=== PATIENT | male | born 1965 | race African-American/Black ===

== ENCOUNTER 2019-07-18 21:40 | Emergency (ER) | payer OTHER ==
[~2019-07-18] VITALS: Ht 175.3 cm; Wt 78.0 kg
--- NOTE | 2019-07-18 21:56 | NUR ---
URINE COLLECTED AND SENT TO LAB
--- NOTE | 2019-07-18 21:56 | NUR ---
PT CAME TO THE ED C/O SI W/ A PLAN TO OVERDOSE HIMSELF W/ HIS MEDICATIONS. DENIES HI. PT AAOX4, RESPIRATIONS EVEN AND UNLABORED ON RA W/ NAD NOTED. PT CHANGED INTO GOWN, CONNECTED TO THE MONITOR, BELONGINGS TO LOCKER, SUICIDE PRECAUTIONS IMPLEMENTED. SITTER AT BEDSIDE FOR SAFETY
--- NOTE | 2019-07-18 21:56 | NUR ---
SECURITY AT BEDSIDE FOR WANDING
[2019-07-18 22:21] LABS: BASOPHILS # (AUTO) 0.1 /CMM (0.0-0.2); BASOPHILS % (AUTO) 1.2 % (0.0-2.0); EOSINOPHILS % (AUTO) 3.4 % (0.0-6.0); HEMATOCRIT 40 % (39-51); HEMOGLOBIN 13.3 g/dL (13.5-17.5); LYMPHOCYTES # (AUTO) 1.9 /CMM (0.8-4.8); MEAN CORPUSCULAR HGB CONC 34 g/dl (31.0-36.0); MEAN CORPUSCULAR VOLUME 100 fL (80-96); MONOCYTES # (AUTO) 0.5 /CMM (0.1-1.30); MONOCYTES % (AUTO) 9.3 % (2.0-12.0); NEUTROPHILS # (AUTO) 2.8 /CMM (1.8-8.9); NEUTROPHILS % (AUTO) 51.1 % (43.0-81.0); PLATELET COUNT (AUTO) 207 /CMM (150-450); RED BLOOD CELL COUNT(AUTO) 3.98 MIL/uL (4.5-6.0); WHITE BLOOD COUNT (AUTO) 5.5 K/uL (4.3-11.0)
[2019-07-18 22:24] LABS: CALCIUM, SERUM 8.8 mg/dL (8.5-10.1); CARBON DIOXIDE 29 mmol/L (21-32); CHLORIDE 105 mmol/L (98-107); CREATININE 1.2 mg/dL (0.6-1.3); GLUCOSE 97 mg/dL (74-106); SODIUM SERUM 141 mmol/L (136-145); UREA NITROGEN, BLOOD 15 mg/dL (7-18)
[2019-07-18 22:29] LABS: ALANINE AMINOTRANSFERASE 45 U/L (12-78); ALBUMIN 3.8 g/dL (3.4-5.0); ALCOHOL, BLOOD < 3 mg/dL (0-0); ALKALINE PHOSPHATASE 94 U/L (46-116); ASPARTATE AMINOTRANSFERASE 87 U/L (15-37); BILIRUBIN,DIRECT 0.1 mg/dL (0.0-0.2); BILIRUBIN,TOTAL 0.3 mg/dL (0.2-1.0); SALICYLATE 3.1 mg/dL (2.8-20.0); TOTAL PROTEIN, SERUM 6.7 g/dL (6.4-8.2)
[2019-07-18 22:30] LABS: ACETAMINOPHEN 0 ug/ml (10-30)
[2019-07-18 22:35] LABS: APPEARANCE,URINE Clear (CLEAR); BILIRUBIN,URINE Negative (NEGATIVE); BLOOD, URINE Negative Ery/uL (NEGATIVE); COLOR,URINE Yellow (YELLOW); KETONES,URINE Negative (NEGATIVE); LEUKOCYTE ESTERASE ,URINE Negative (NEGATIVE); NITRITE, URINE Negative (NEGATIVE); PROTEIN,URINE Negative (NEGATIVE); UGLUCOSE Negative (NEGATIVE); UROBILINOGEN,URINE >=8.0 EU/dL (0.2)
--- NOTE | 2019-07-18 22:52 | NUR ---
CLINICAL FAXED TO [facility] FOR VOLUNTARY PSYCH ADMISSION.
--- NOTE | 2019-07-19 01:09 | NUR ---
PT ACCEPTED AT [facility] PHONE NUMBER FOR REPORT EXT [phone] ACCEPTING PING/TREVOR CALL REPORT TO JOSE A DE LA CRUZ
--- NOTE | 2019-07-19 02:21 | NUR ---
CALLED CALL THE [facility] TRANSPORT TO [facility]. ETA [phone]
--- NOTE | 2019-07-19 03:25 | NUR ---
REPORT GIVEN TO JOSE A DE LA CRUZ [facility] PHILIPPE NARANJO
--- NOTE | 2019-07-19 03:36 | NUR ---
PT RESTING COMFORTABLY IN BED. VSS. NO ACUTE DISTRESS NOTED. SITTER AT BEDSIDE FOR SAFETY
--- NOTE | 2019-07-19 06:38 | NUR ---
CALLED [facility] FOR FOLLOW UP ON ETA ON BLS TRANSPORT. STATED THE BLS TRANSPORT THAT IS SUPPOSED TO [employer] PROGRAM DIRECTOR OUR PATIENT IS STILL AT [facility] TRANSPORTING ANOTHER PT THAT WE SENT, THEYRE WAITING TO TEST THEIR PT FOR COVID. ALSO STATED THAT ONCE THEY TRANSFER THEIR PT THEY WILL COME [employer] MED[employer] PROGRAM DIRECTOR OUR PT.
[2019-07-19 07:45] VITALS: BP 137/91
--- NOTE | 2019-07-19 07:59 | NUR ---
CALLED [id number] TO FOLLOW UP ABOUT ETA [phone] OPT[facility] 2 SPOKE WITH [facility] 45MIN.
--- NOTE | 2019-07-19 08:38 | NUR ---
REPORT GIVEN TO EMT FOR PT TRANSFER TO [facility].
== END 2019-07-19 08:39 ==
LOC: ER 21:43
DX: R45.851 Suicidal ideations (principal); F19.10 Other psychoactive substance abuse, uncomplicated; G40.909 Epilepsy, unspecified, not intractable, without status epilepticus; F20.9 Schizophrenia, unspecified; F32.9 Major depressive disorder, single episode, unspecified
CPT/HCPCS: 36415; 80048; 80076; 80305; 80307; 80329; 81001; 85025; 99285; G0480; 81000-TC

== ENCOUNTER 2019-08-30 12:17 | Emergency (ER) | payer OTHER ==
[~2019-08-30] VITALS: Ht 177.8 cm; Wt 72.6 kg
--- NOTE | 2019-08-30 12:17 | NUR ---
PT BIB SELF C/O SI " I WANT TO RUN THRU TRAFFIC" PT IS AAOX4, NOT IN RESPIRATORY DISTRESS, V/S STABLE, KEPT RESTED AND COMFORTABLE. WILL CONTINUE TO MONITOR. SITTER AT BEDSIDE.
--- NOTE | 2019-08-30 12:27 | NUR ---
URINE SPECIMEN COLLECTED AND SENT TO LAB.
--- NOTE | 2019-08-30 12:36 | NUR ---
ER PHLEB AT BEDSIDE FOR BLOOD DRAW.
[2019-08-30 12:55] LABS: BASOPHILS # (AUTO) 0.1 /CMM (0.0-0.2); BASOPHILS % (AUTO) 1.2 % (0.0-2.0); HEMATOCRIT 41 % (39-51); LYMPHOCYTES # (AUTO) 1.3 /CMM (0.8-4.8); LYMPHOCYTES % (AUTO) 30.8 % (20.0-44.0); MEAN CORPUSCULAR HGB CONC 34 g/dl (31.0-36.0); MEAN CORPUSCULAR VOLUME 101 fL (80-96); MONOCYTES # (AUTO) 0.5 /CMM (0.1-1.30); MONOCYTES % (AUTO) 12.7 % (2.0-12.0); NEUTROPHILS # (AUTO) 2.2 /CMM (1.8-8.9); NEUTROPHILS % (AUTO) 51.3 % (43.0-81.0); PLATELET COUNT (AUTO) 205 /CMM (150-450); RED BLOOD CELL COUNT(AUTO) 4.11 MIL/uL (4.5-6.0); WHITE BLOOD COUNT (AUTO) 4.3 K/uL (4.3-11.0)
[2019-08-30 13:03] LABS: CARBON DIOXIDE 30 mmol/L (21-32); CHLORIDE 104 mmol/L (98-107); CREATININE 1.1 mg/dL (0.6-1.3); GLUCOSE 88 mg/dL (74-106); POTASSIUM 3.3 mmol/L (3.5-5.1); SODIUM SERUM 141 mmol/L (136-145); UREA NITROGEN, BLOOD 16 mg/dL (7-18)
[2019-08-30 13:08] LABS: ALANINE AMINOTRANSFERASE 38 U/L (12-78); ALBUMIN 3.8 g/dL (3.4-5.0); ALCOHOL, BLOOD < 3 mg/dL (0-0); ALKALINE PHOSPHATASE 97 U/L (46-116); ASPARTATE AMINOTRANSFERASE 15 U/L (15-37); BILIRUBIN,DIRECT 0.1 mg/dL (0.0-0.2); BILIRUBIN,TOTAL 0.4 mg/dL (0.2-1.0)
[2019-08-30 13:11] LABS: ACETAMINOPHEN 0 ug/ml (10-30); SALICYLATE 2.6 mg/dL (2.8-20.0)
--- NOTE | 2019-08-30 14:54 | NUR ---
Pt is a 54-year-old male who came to [facility] requesting voluntary psychiatric hospitalization. Pt reports he is suicidal with a plan. DRESSAGE INSTRUCTOR contacted Ronnell at [facility] and initiated voluntary hospitalization. DRESSAGE INSTRUCTOR conducted chart review and faxed clinicals to [facility] intake. DANIEL received a callback from Lucia at intake stating she is missing the medical clearance. DRESSAGE INSTRUCTOR requested for her to contact ED since medical clearance note was not done as of yet by . DRESSAGE INSTRUCTOR updated CRN Gener in ED with aforementioned information.
--- NOTE | 2019-08-30 15:04 | NUR ---
RESEARCH PROGRAM MANAGER faxed medical clearance note to [facility] intake dept and updated CRN Gener in ED.
--- NOTE | 2019-08-30 16:05 | NUR ---
PT ACCEPTED IN [facility] DR[facility] MEHTA GIVE REPORT TO [phone] UNIT 2.
--- NOTE | 2019-08-30 16:20 | NUR ---
[facility] CONFIRMATION # [id number] ONCE THEY HAV3 TRANSPORT THEY WILL CALL
--- NOTE | 2019-08-30 16:46 | NUR ---
REPORT GIVEN TO JOSE A TORRES OF COUNT INCLUDES THE [facility]
--- NOTE | 2019-08-30 16:51 | NUR ---
[facility] ETA [phone]
[2019-08-30 18:15] VITALS: BP 122/68
--- NOTE | 2019-08-30 18:15 | NUR ---
REPORT GIVEN EMT FOR PT TRANSFER TO [facility].
== END 2019-08-30 18:16 ==
LOC: ER 12:17
DX: T73.0XXA Starvation, initial encounter (principal); R45.851 Suicidal ideations; F15.10 Other stimulant abuse, uncomplicated; F14.10 Cocaine abuse, uncomplicated; F12.10 Cannabis abuse, uncomplicated; F20.0 Paranoid schizophrenia; R56.9 Unspecified convulsions; Z59.0 Homelessness; X58.XXXA Exposure to other specified factors, initial encounter
CPT/HCPCS: 36415; 80048; 80076; 80305; 80307; 80329; 85025; 99285; G0480

== ENCOUNTER 2019-10-11 03:16 | Emergency (ER) | payer OTHER ==
[~2019-10-11] VITALS: Ht 175.3 cm; Wt 72.6 kg
--- NOTE | 2019-10-11 03:40 | NUR ---
BIBDAVION C/O SI TO JUMP INFRONT OF TRAFFIC. -HI. PT AAOX4. AMBULATORY WITH STEADY GAIT. PLACED IN BED 15, ON MONITOR, AND PULSE OX. PT BELONINGS PLACED IN LOCKER.
--- NOTE | 2019-10-11 03:41 | NUR ---
PT PROVIDED URINE SAMPLE. SENT TO LAB
--- NOTE | 2019-10-11 03:42 | NUR ---
SECURITY CALLED FOR WANDING
--- NOTE | 2019-10-11 03:48 | NUR ---
MARKETING INTELLIGENCE ANALYST AT BEDSIDE.
[2019-10-11 04:17] LABS: BASOPHILS # (AUTO) 0.1 /CMM (0.0-0.2); BASOPHILS % (AUTO) 1.1 % (0.0-2.0); EOSINOPHILS % (AUTO) 3.3 % (0.0-6.0); HEMATOCRIT 42 % (39-51); HEMOGLOBIN 13.8 g/dL (13.5-17.5); LYMPHOCYTES # (AUTO) 1.9 /CMM (0.8-4.8); LYMPHOCYTES % (AUTO) 34.2 % (20.0-44.0); MEAN CORPUSCULAR HGB CONC 33 g/dl (31.0-36.0); MEAN CORPUSCULAR VOLUME 100 fL (80-96); MONOCYTES # (AUTO) 0.6 /CMM (0.1-1.30); MONOCYTES % (AUTO) 11.1 % (2.0-12.0); NEUTROPHILS # (AUTO) 2.8 /CMM (1.8-8.9); NEUTROPHILS % (AUTO) 50.3 % (43.0-81.0); PLATELET COUNT (AUTO) 230 /CMM (150-450); RED BLOOD CELL COUNT(AUTO) 4.18 MIL/uL (4.5-6.0); WHITE BLOOD COUNT (AUTO) 5.7 K/uL (4.3-11.0)
[2019-10-11 04:18] LABS: APPEARANCE,URINE CLEAR (CLEAR); BILIRUBIN,URINE SMALL (NEGATIVE); BLOOD, URINE SMALL Ery/uL (NEGATIVE); COLOR,URINE YELLOW (YELLOW); KETONES,URINE NEGATIVE (NEGATIVE); LEUKOCYTE ESTERASE ,URINE NEGATIVE (NEGATIVE); NITRITE, URINE NEGATIVE (NEGATIVE); PH,URINE 5.5 (5.0-8.0); PROTEIN,URINE NEGATIVE (NEGATIVE); UGLUCOSE NEGATIVE (NEGATIVE)
[2019-10-11 04:27] LABS: BACTERIA,URINE Few /HPF (None Seen); CALCIUM OXALATE CRYSTALS,UR Many /HPF (None Seen); MUCUS,URINE Moderate /LPF (None Seen); SQUAMOUS EPITHELIAL CELL,UR Rare /HPF (None Seen)
--- NOTE | 2019-10-11 04:54 | NUR ---
Patient is resting comfortably in bed with eyes closed. Easily aroused. VSS
[2019-10-11 06:14] LABS: ALANINE AMINOTRANSFERASE 18 U/L (12-78); ALBUMIN 3.8 g/dL (3.4-5.0); ALKALINE PHOSPHATASE 90 U/L (46-116); ASPARTATE AMINOTRANSFERASE 10 U/L (15-37); BILIRUBIN,DIRECT 0.1 mg/dL (0.0-0.2); BILIRUBIN,TOTAL 0.3 mg/dL (0.2-1.0); CALCIUM, SERUM 8.8 mg/dL (8.5-10.1); CARBON DIOXIDE 24 mmol/L (21-32); CHLORIDE 102 mmol/L (98-107); CREATININE 1.3 mg/dL (0.6-1.3); GLUCOSE 125 mg/dL (74-106); POTASSIUM 3.4 mmol/L (3.5-5.1); SALICYLATE 4.1 mg/dL (2.8-20.0); SODIUM SERUM 137 mmol/L (136-145); TOTAL PROTEIN, SERUM 6.9 g/dL (6.4-8.2); UREA NITROGEN, BLOOD 15 mg/dL (7-18)
[2019-10-11 06:17] LABS: ACETAMINOPHEN 0 ug/ml (10-30)
[2019-10-11 06:26] LABS: ALCOHOL, BLOOD < 3 mg/dL (0-0)
--- NOTE | 2019-10-11 07:19 | NUR ---
ASSESSED PT ON BED ASLEEP BUT EASILY AROUSABLE. NOT IN RESPIRATORY DISTRESS, V/S STABLE, KEPT RESTED AND COMFORTABLE. WILL CONTINUE TO MONITOR.
--- NOTE | 2019-10-11 08:55 | NUR ---
called so jacki kelly, spoke with Hugo, said they received fax but will follow up with bed availability
--- NOTE | 2019-10-11 09:40 | NUR ---
8:45am This SW faxed over clinicals to Ronnell at [facility] . This SW received confirmation of the fax. This SW awaiting confirmation of bed availability.
--- NOTE | 2019-10-11 09:40 | NUR ---
8:30am: Rubber Goods Finisher met with the patient at bedside. Patient is a 54-year-old Male. Patient was alert and orientated x4 and receptive to speaking with this social media marketing specialist. Patient made little eye contact with this social media marketing specialist and when redirected to speak up patient did so. Patient was able to confirm demographics on the face sheet. Patient resides with his father Umesh at [address] [place] [address]. Patient reports the use of a wheelchair in the home as he has pain in his leg, patient does not report having a walker or a cane in addition to the wheelchair. Patient currently receives [employer] benefits, approximately $200. Patient reports alcohol use, currently drinking once a day approximately drinking 15 beers. Patient reports the use of marijuana every day. Patient also reports smoking cigarettes, 2 packs a day. Patient reports a schizophrenic diagnosis currently taking Abilify and Seroquel. Patient reports visual hallucinations to kill my mom and pt reports audio hallucinations to kill myself. Patients presents with a suicidal ideation to run into traffic. Patient denies having homicidal ideations outside of visual hallucinations. This SW spoke to the patient about treatment plan and patient agreed to treatment including a voluntary psychiatric admission. This SW to remain available for all patient needs.
--- NOTE | 2019-10-11 10:09 | NUR ---
Jayesh Young room 203-B [phone] ext [phone]
--- NOTE | 2019-10-11 11:09 | NUR ---
Report given to Ирина NARANJO for maame.
--- NOTE | 2019-10-11 11:17 | NUR ---
SPOKE TO JOHN FROM [facility] TRANSPORT ARRANGED, CONFIRMATION NUMBER: [phone] WAITING FOR CALL BACK FOR ETA.
--- NOTE | 2019-10-11 11:43 | NUR ---
AMBULANCE ETA 1200
[2019-10-11 12:21] VITALS: BP 123/69
--- NOTE | 2019-10-11 12:29 | NUR ---
patient picked up by private ambulance going to [facility] in no distress.
== END 2019-10-11 12:29 ==
LOC: ER 03:26
DX: R45.851 Suicidal ideations (principal); F20.9 Schizophrenia, unspecified
CPT/HCPCS: 36415; 80048; 80076; 80305; 80307; 80329; 81001; 85025; 99285; G0480; 81000-TC

== ENCOUNTER 2020-08-19 11:57 | Emergency (ER) | payer OTHER ==
[~2020-08-19] VITALS: Ht 180.3 cm; Wt 76.2 kg
--- NOTE | 2020-08-19 12:10 | NUR ---
PT C/O ABSCESS ON LT CHEEK. AAOX4, VSS. RR EVEN & UNLABORED. NAD NOTED AT THIS TIME.
[2020-08-19] MEDS ORDERED: SULF1TAB48 PO (13:08)
[2020-08-19] MEDS ORDERED: CEPH500C2 PO (13:08)
--- NOTE | 2020-08-19 13:22 | NUR ---
PT UPON DC FOR CELLULITIS. PT STATED THAT HE'S SUICIDAL & THOUGHTS OF OD ON PILLS, NOTIFIED ERMSohail. TORITER AT BS. PT CALM & COOPERATIVE AT THIS TIME. WILL CONT TO MONITOR.
--- NOTE | 2020-08-19 13:30 | NUR ---
ER PHLEB AT BEDSIDE FOR BLOOD DRAW.
[2020-08-19 13:39] LABS: BASOPHILS # (AUTO) 0.1 K/uL (0.0-0.2); BASOPHILS % (AUTO) 1.3 % (0.0-2.0); EOSINOPHILS % (AUTO) 1.9 % (0.0-6.0); HEMATOCRIT 42 % (39-51); HEMOGLOBIN 13.8 g/dL (13.5-17.5); LYMPHOCYTES # (AUTO) 1.5 K/uL (0.8-4.8); LYMPHOCYTES % (AUTO) 24.5 % (20.0-44.0); MEAN CORPUSCULAR HGB CONC 33 g/dl (31.0-36.0); MEAN CORPUSCULAR VOLUME 102 fL (80-96); MONOCYTES # (AUTO) 0.7 K/uL (0.1-1.30); MONOCYTES % (AUTO) 11.9 % (2.0-12.0); NEUTROPHILS # (AUTO) 3.6 K/uL (1.8-8.9); NEUTROPHILS % (AUTO) 60.4 % (43.0-81.0); PLATELET COUNT (AUTO) 213 K/uL (150-450); RED BLOOD CELL COUNT(AUTO) 4.12 MIL/uL (4.5-6.0)
[2020-08-19 13:58] LABS: CALCIUM, SERUM 9.1 mg/dL (8.5-10.1); CARBON DIOXIDE 32 mmol/L (21-32); CHLORIDE 104 mmol/L (98-107); CREATININE 1.1 mg/dL (0.6-1.3); GLUCOSE 91 mg/dL (74-106); POTASSIUM 3.7 mmol/L (3.5-5.1); SODIUM SERUM 142 mmol/L (136-145); UREA NITROGEN, BLOOD 13 mg/dL (7-18)
[2020-08-19 14:04] LABS: ACETAMINOPHEN 0 ug/ml (10-30); ALANINE AMINOTRANSFERASE 28 U/L (12-78); ALCOHOL, BLOOD < 3 mg/dL (0-0); ALKALINE PHOSPHATASE 103 U/L (46-116); ASPARTATE AMINOTRANSFERASE 17 U/L (15-37); BILIRUBIN,DIRECT 0.1 mg/dL (0.0-0.2); BILIRUBIN,TOTAL 0.5 mg/dL (0.2-1.0); TOTAL PROTEIN, SERUM 7.2 g/dL (6.4-8.2)
[2020-08-19 15:08] LABS: BILIRUBIN,URINE NEGATIVE (NEGATIVE); COLOR,URINE YELLOW (YELLOW); LEUKOCYTE ESTERASE ,URINE NEGATIVE (NEGATIVE); NITRITE, URINE NEGATIVE (NEGATIVE); PROTEIN,URINE NEGATIVE (NEGATIVE); UGLUCOSE NEGATIVE (NEGATIVE)
--- NOTE | 2020-08-19 15:13 | NUR ---
Patient is resting comfortably in bed with eyes closed. Easily aroused. VSS
[2020-08-19 15:32] LABS: BACTERIA,URINE None seen /HPF (None Seen); RBC,URINE 0-2 /HPF (0-2); SQUAMOUS EPITHELIAL CELL,UR 0-2 /HPF (None Seen); WBC,URINE 0-2 /HPF (0-3)
--- NOTE | 2020-08-19 18:01 | NUR ---
[facility] STILL REVIEWING CLINICALS.
[2020-08-19 18:15] VITALS: BP 147/93
--- NOTE | 2020-08-19 18:16 | NUR ---
PT WATCHING TV. RR EVEN & UNLABORED. CALM & COOPERATIVE, NAD NOTED AT THIS TIME. SITTER AT BS. WILL CONT TO MONITOR.
--- NOTE | 2020-08-19 20:43 | NUR ---
PT ACC[facility] OROPEZA. UNIT 2. # FOR REPORT
--- NOTE | 2020-08-19 20:44 | NUR ---
[facility] CALLED FOR TRANSPORTATION. ON HOLD FOR > 30 MINUTES.
--- NOTE | 2020-08-19 20:46 | NUR ---
[facility] CALLED FOR TRANSPORT. ETA 30 MINUTES
--- NOTE | 2020-08-19 20:58 | NUR ---
REPORT GIVEN TO JOSE A VARGAS FOR ABDIRIZAK.
--- NOTE | 2020-08-19 21:12 | NUR ---
[facility] AT BEDSIDE FOR TRASNPORT TO [facility]
--- NOTE | 2020-08-19 21:29 | NUR ---
report given to [facility] ambulance for ABDIRIZAK.
== END 2020-08-19 13:23 ==
LOC: ER 11:57
DX: L03.211 Cellulitis of face (principal); R45.851 Suicidal ideations; Z20.822 Contact with and (suspected) exposure to COVID-19; F20.9 Schizophrenia, unspecified; G40.909 Epilepsy, unspecified, not intractable, without status epilepticus; R82.5 Elevated urine levels of drugs, medicaments and biological substances
CPT/HCPCS: 36415; 80048; 80076; 80143; 80307; 80320; 81001; 85025; 87426; 99285; C9803; G0480

== ENCOUNTER 2020-09-19 16:23 | Emergency (ER) | payer OTHER ==
[~2020-09-19] VITALS: Ht 175.3 cm; Wt 75.7 kg
[~2020-09-19 16:23] MED LIST: CEPH500C2 PO; SULF1TAB48 PO
--- NOTE | 2020-09-19 16:26 | NUR ---
PT SELF PRESENTS TO ED. STEADY GAIT. C/O SUICIDAL IDEATION X 1 WEEK. DENIES HI. DENIES ANY PAIN OR ANY DISCOMFORT BOBBIN PAINTER. WILLING TO GO VOLUNTARY TO A PSYCH FACILITY. STATES NOT ON ANY CURRENT MEDICATION. STABLE VITALS. COOPERATIVE TO STAFF. AWAITING MD EPPERSON.
--- NOTE | 2020-09-19 16:40 | NUR ---
BRUNO HARO AT BEDSIDE FOR EVAL.
--- NOTE | 2020-09-19 17:18 | NUR ---
POWER CRANE OPERATOR AT BEDSIDE FOR BLOOD DRAW.
[2020-09-19 17:23] LABS: BILIRUBIN,URINE Negative (NEGATIVE); COLOR,URINE DARK YELLOW (YELLOW); EOSINOPHILS % (AUTO) 3.9 % (0.0-6.0); HEMATOCRIT 42 % (39-51); HEMOGLOBIN 13.8 g/dL (13.5-17.5); LEUKOCYTE ESTERASE ,URINE Negative (NEGATIVE); LYMPHOCYTES % (AUTO) 31.6 % (20.0-44.0); MEAN CORPUSCULAR HGB CONC 33 g/dl (31.0-36.0); MEAN CORPUSCULAR VOLUME 101 fL (80-96); MONOCYTES % (AUTO) 9.5 % (2.0-12.0); NEUTROPHILS # (AUTO) 2.7 K/uL (1.8-8.9); NITRITE, URINE Negative (NEGATIVE); PH,URINE 5.5 (5.0-8.0); PLATELET COUNT (AUTO) 226 K/uL (150-450); PROTEIN,URINE Negative (NEGATIVE); RED BLOOD CELL COUNT(AUTO) 4.13 MIL/uL (4.5-6.0); UGLUCOSE Negative (NEGATIVE); UROBILINOGEN,URINE 0.2 EU/dL (0.2)
[2020-09-19 17:24] LABS: BASOPHILS # (AUTO) 0.1 K/uL (0.0-0.2); LYMPHOCYTES # (AUTO) 1.6 K/uL (0.8-4.8); MONOCYTES # (AUTO) 0.5 K/uL (0.1-1.30)
--- NOTE | 2020-09-19 17:30 | NUR ---
PT PROVIDED W/ MEAL TRAY.
[2020-09-19 17:33] LABS: CALCIUM, SERUM 8.7 mg/dL (8.5-10.1); CARBON DIOXIDE 27 mmol/L (21-32); CHLORIDE 106 mmol/L (98-107); CREATININE 1.2 mg/dL (0.6-1.3); GLUCOSE 112 mg/dL (74-106); POTASSIUM 3.4 mmol/L (3.5-5.1); SODIUM SERUM 141 mmol/L (136-145); UREA NITROGEN, BLOOD 10 mg/dL (7-18)
[2020-09-19 17:39] LABS: ALANINE AMINOTRANSFERASE 21 U/L (12-78); ALBUMIN 3.6 g/dL (3.4-5.0); ALCOHOL, BLOOD < 3 mg/dL (0-0); ALKALINE PHOSPHATASE 108 U/L (46-116); ASPARTATE AMINOTRANSFERASE 12 U/L (15-37); BILIRUBIN,TOTAL 0.2 mg/dL (0.2-1.0); TOTAL PROTEIN, SERUM 6.8 g/dL (6.4-8.2)
[2020-09-19 17:52] LABS: ACETAMINOPHEN < 2 ug/ml (10-30); BILIRUBIN,DIRECT 0.1 mg/dL (0.0-0.2)
[2020-09-19] MEDS ORDERED: POTASSIUM CHLORIDE 20 MEQ TAB.PRT.SR PO ONE ×2 (17:58→18:00)
--- NOTE | 2020-09-19 19:19 | NUR ---
CLINICAL AND FACESHEE FAXED TO [facility] FOR VOLUNTARY PSYCH ADMISSION.
--- NOTE | 2020-09-19 20:21 | NUR ---
CALLED [facility]... WILL CALL US IN 15 MINS.
--- NOTE | 2020-09-19 20:44 | NUR ---
TRANSFER INFORMATION PT ACCEPTED AT [facility] ACCEPTING MD STEELE PHONE NUMBER FOR REPORT PT WILL GO TO UNIT 2
--- NOTE | 2020-09-19 20:46 | NUR ---
CALLED [facility] ETA 2200 PER MARLENI.
[2020-09-19 20:47] VITALS: BP 139/76
--- NOTE | 2020-09-19 20:55 | NUR ---
Report given to Leatha NARANJO for maame Addendum: 09/19/20 at 2056 by JUAN From [facility]
--- NOTE | 2020-09-19 21:06 | NUR ---
[facility] IN FACILITY, REPORT GIVEN TO EMT. NADViri PAUL
== END 2020-09-19 21:11 ==
LOC: ER 16:23
DX: R45.851 Suicidal ideations (principal); F19.10 Other psychoactive substance abuse, uncomplicated; E87.6 Hypokalemia; G40.909 Epilepsy, unspecified, not intractable, without status epilepticus; F20.9 Schizophrenia, unspecified; Z20.822 Contact with and (suspected) exposure to COVID-19
CPT/HCPCS: 36415; 80048; 80076; 80143; 80307; 80320; 81003; 85025; 87426; 99285; C9803; G0480

== ENCOUNTER 2020-10-04 09:17 | Inpatient (IN) | payer OTHER ==
[~2020-10-04] VITALS: Ht 177.8 cm; Wt 74.1 kg
[2020-10-04] MEDS ORDERED: KETOROLAC TROMETHAMINE INJ 30 MG/ML VIAL IM ONE (10:00)
[2020-10-04] MEDS ORDERED: KETOROLAC TROMETHAMINE 15 MG/ML VIAL ONE (10:09)
[2020-10-04] MEDS ORDERED: IBUP-1955 PO (10:44)
[2020-10-04] MEDS ORDERED: PIPERACILLIN /TAZOBACTAM 3.375 G in IV D5W 50 ML IV ONE (12:00)
[2020-10-04] MEDS ORDERED: VANCOMYCIN 1 GM in IV D5W 250 ML IV ONE (12:00)
[2020-10-04 12:20] LABS: BASOPHILS # (AUTO) 0.1 K/uL (0.0-0.2); BASOPHILS % (AUTO) 1.2 % (0.0-2.0); EOSINOPHILS % (AUTO) 4.1 % (0.0-6.0); HEMATOCRIT 44 % (39-51); HEMOGLOBIN 14.6 g/dL (13.5-17.5); LYMPHOCYTES # (AUTO) 1.7 K/uL (0.8-4.8); LYMPHOCYTES % (AUTO) 35.6 % (20.0-44.0); MEAN CORPUSCULAR HGB CONC 33 g/dl (31.0-36.0); MEAN CORPUSCULAR VOLUME 101 fL (80-96); MONOCYTES # (AUTO) 0.5 K/uL (0.1-1.30); MONOCYTES % (AUTO) 10.2 % (2.0-12.0); NEUTROPHILS # (AUTO) 2.3 K/uL (1.8-8.9); NEUTROPHILS % (AUTO) 48.9 % (43.0-81.0); PLATELET COUNT (AUTO) 249 K/uL (150-450); RED BLOOD CELL COUNT(AUTO) 4.33 MIL/uL (4.5-6.0); WHITE BLOOD COUNT (AUTO) 4.8 K/uL (4.3-11.0)
[2020-10-04 12:41] LABS: CALCIUM, SERUM 9.1 mg/dL (8.5-10.1); CREATININE 1.2 mg/dL (0.6-1.3); POTASSIUM 4.1 mmol/L (3.5-5.1)
[2020-10-04] MEDS ORDERED: ZOLPIDEM TARTRATE 5 MG TABLET PO PRN (13:00)
[2020-10-04] MEDS ORDERED: ACETAMINOPHEN 325 MG TABLET PO PRN (13:00)
[2020-10-04] MEDS ORDERED: MAG HYDROX/AL HYDROX/SIMETH 30 ML UDC PO PRN (13:00)
[2020-10-04] MEDS ORDERED: MAGNESIUM HYDROXIDE 30 ML UDC PO PRN (13:00)
[2020-10-04] MEDS ORDERED: Z GUARD REMEDY 2 OZ OINT TP PRN (13:00)
[2020-10-04] MEDS ORDERED: ONDANSETRON HCL/PF 4 MG/2 ML VIAL IVP PRN (13:00)
[2020-10-04] MEDS ORDERED: PIPERACILLIN /TAZOBACTAM 4.5 G in IV D5W 50 ML IV SCH (18:00)
[2020-10-04] MEDS: ZOSYN IVPB 3.375 G in IV D5W 50ml IV SCH (19:32)
[2020-10-05] MEDS ORDERED: PIPERACILLIN /TAZOBACTAM 3.375 G VIAL IV ONE ×2 (01:14→05:07)
[2020-10-05] MEDS: ZOSYN IVPB 3.375 G in IV D5W 50ml IV SCH ×5 (01:15→23:16)
[2020-10-05 02:20] VITALS: BP 148/84
[2020-10-05] MEDS ORDERED: VANCOMYCIN 1 GM VIAL ONE ×2 (02:36→02:38)
[2020-10-05] MEDS: IV 1/2NS 1000 ML 1,000 ML IV PRN (02:46)
[2020-10-05] MEDS: VANCOMYCIN 1.25 GM in IV D5W 250 ML IV SCH ×2 (02:46→13:35)
[2020-10-05] MEDS ORDERED: QUET100T PO (03:48)
[2020-10-05 09:10] LABS: BASOPHILS # (AUTO) 0.1 K/uL (0.0-0.2); BASOPHILS % (AUTO) 1.3 % (0.0-2.0); HEMATOCRIT 41 % (39-51); HEMOGLOBIN 13.7 g/dL (13.5-17.5); LYMPHOCYTES # (AUTO) 1.2 K/uL (0.8-4.8); LYMPHOCYTES % (AUTO) 30.4 % (20.0-44.0); MEAN CORPUSCULAR HGB CONC 33 g/dl (31.0-36.0); MEAN CORPUSCULAR VOLUME 101 fL (80-96); MONOCYTES # (AUTO) 0.3 K/uL (0.1-1.30); MONOCYTES % (AUTO) 8.4 % (2.0-12.0); NEUTROPHILS # (AUTO) 2.2 K/uL (1.8-8.9); NEUTROPHILS % (AUTO) 55.9 % (43.0-81.0); PLATELET COUNT (AUTO) 215 K/uL (150-450); RED BLOOD CELL COUNT(AUTO) 4.06 MIL/uL (4.5-6.0)
[2020-10-05] MEDS: PANTOPRAZOLE 40 MG TABLET.DR PO SCH (09:22)
[2020-10-05 09:23] LABS: CALCIUM, SERUM 7.3 mg/dL (8.5-10.1); CREATININE 1.2 mg/dL (0.6-1.3); MAGNESIUM 1.8 mg/dL (1.8-2.4); PHOSPHORUS 3.7 mg/dL (2.5-4.9); POTASSIUM 3.1 mmol/L (3.5-5.1)
[2020-10-05 09:34] LABS: THYROID STIMULATING HORMONE 0.876 uIU/mL (0.358-3.74)
[2020-10-05 09:43] VITALS: BP 145/96
[2020-10-05 16:17] VITALS: BP 134/86
[2020-10-05] MEDS ORDERED: GADOTERATE MEGLUMINE 10 MMOL/20 ML VIAL IV ONE (18:25)
[2020-10-05] MEDS: POTASSIUM CHLORIDE 20 MEQ TAB.PRT.SR PO SCH ×2 (18:25→18:42)
[2020-10-05 20:00] VITALS: BP 146/83
[2020-10-05 20:56] VITALS: BP 146/83
[2020-10-05] MEDS: HYDROCODONE/APAP 5/325MG TABLET PO PRN (22:31)
[2020-10-06] MEDS: VANCOMYCIN 1.25 GM in IV D5W 250 ML IV SCH ×2 (01:06→12:20)
[2020-10-06] MEDS: HYDROCODONE/APAP 5/325MG TABLET PO PRN (03:16)
[2020-10-06] MEDS: ZOSYN IVPB 3.375 G in IV D5W 50ml IV SCH ×4 (05:58→23:20)
[2020-10-06] MEDS: PANTOPRAZOLE 40 MG TABLET.DR PO SCH (07:56)
[2020-10-06] MEDS: IV 1/2NS 1000 ML 1,000 ML IV PRN (09:06)
[2020-10-06 09:25] LABS: CALCIUM, SERUM 8.2 mg/dL (8.5-10.1); CREATININE 1.3 mg/dL (0.6-1.3); POTASSIUM 3.9 mmol/L (3.5-5.1)
[2020-10-06 16:00] VITALS: BP 123/86
[2020-10-06 20:00] VITALS: BP 165/100
[2020-10-06] MEDS: VANCOMYCIN 1 GM in IV D5W 250ml IV SCH (20:16)
[2020-10-07] MEDS: VANCOMYCIN 1 GM in IV D5W 250ml IV SCH ×2 (04:05→13:50)
[2020-10-07] MEDS: ZOSYN IVPB 3.375 G in IV D5W 50ml IV SCH ×4 (05:10→23:00)
[2020-10-07 07:17] LABS: CALCIUM, SERUM 9.3 mg/dL (8.5-10.1); CREATININE 1.2 mg/dL (0.6-1.3); POTASSIUM 4.1 mmol/L (3.5-5.1)
[2020-10-07] MEDS: PANTOPRAZOLE 40 MG TABLET.DR PO SCH (07:59)
[2020-10-07 08:00] VITALS: BP_SYST 134; BP_SYST 150; BP_DIAS 78; BP_DIAS 97
[2020-10-07] MEDS: ENSURE ENLIVE 237 ML LIQUID (VANILLA) PO SCH ×3 (08:54→17:10)
[2020-10-07 16:00] VITALS: BP 122/87
[2020-10-07 20:00] VITALS: BP 147/97
[2020-10-07] MEDS: VANCOMYCIN 1.25 GM in IV D5W 250 ML IV SCH (20:43)
[2020-10-07] MEDS ORDERED: diphenhydrAMINE HCL 50 MG/ML VIAL IV PRN (21:34)
[2020-10-08] MEDS: IV 1/2NS 1000 ML 1,000 ML IV PRN (03:25)
[2020-10-08] MEDS: VANCOMYCIN 1.25 GM in IV D5W 250 ML IV SCH (04:04)
[2020-10-08] MEDS: ZOSYN IVPB 3.375 G in IV D5W 50ml IV SCH ×2 (06:29→12:00)
[2020-10-08 08:00] VITALS: BP 130/86
[2020-10-08] MEDS: PANTOPRAZOLE 40 MG TABLET.DR PO SCH (08:50)
[2020-10-08] MEDS: ENSURE ENLIVE 237 ML LIQUID (VANILLA) PO SCH ×2 (08:54→11:35)
== END 2020-10-08 12:50 | DRG 344 ==
LOC: ER 09:17 → MEDSG1 22:04 → MED 10-05 01:10
DX: M86.671 Other chronic osteomyelitis, right ankle and foot (principal); F20.9 Schizophrenia, unspecified; G40.909 Epilepsy, unspecified, not intractable, without status epilepticus; Z20.822 Contact with and (suspected) exposure to COVID-19; I10 Essential (primary) hypertension; Z59.0 Homelessness; Z79.899 Other long term (current) drug therapy; Z79.2 Long term (current) use of antibiotics; Z72.0 Tobacco use; M20.41 Other hammer toe(s) (acquired), right foot; M20.42 Other hammer toe(s) (acquired), left foot; R26.9 Unspecified abnormalities of gait and mobility; M77.30 Calcaneal spur, unspecified foot
CPT/HCPCS: 36415; 71045-TC; 73630-TC; 73720-TC; 80048-TC; 80061-TC; 80202-TC; 83605-TC; 83735-TC; 84100-TC; 84443-TC; 85025-TC; 85610-TC; 85652-TC; 86140-TC; 86850-TC; 87040-TC; 87081-TC; 97116-TC; 97530-TC; A9575; C9803; G0378; J1200; J1885; J2543; J3370; J3490; J7030; J7060

== ENCOUNTER 2020-10-16 19:50 | Emergency (ER) | payer OTHER ==
[~2020-10-16] VITALS: Ht 175.3 cm; Wt 77.1 kg
[~2020-10-16 19:50] MED LIST changes: -CEPH500C2 PO; +QUET100T PO; -SULF1TAB48 PO
--- NOTE | 2020-10-16 21:14 | NUR ---
TO ER BED 15 REQUESTING MEDICAL CLEARANCE FOR VOLUNTARY PSYCH ADMISSION. PT C/O SI WITH PLAN TO RUN INTO TRAFFIC. DENIES HI. PT AAOX4 NO ACUTE DISTRESS NOTED, RESP EVEN AND UNLABORED. PT CALM AND COOPERATIVE AT THIS TIME. PLACE PT ON HOSPITAL GOWN, ALL BELONGINGS REMOVED AND PLACED IN A LOCKED HOSPITAL LOCKER. 1:1 SITTER AT BEDSIDE FOR PT SAFETY.
--- NOTE | 2020-10-16 21:51 | NUR ---
PAPER WRAPPING MACHINE OPERATOR AT BEDSIDE TO BLOOD DRAW.
[2020-10-16 22:01] LABS: BASOPHILS # (AUTO) 0.1 K/uL (0.0-0.2); BASOPHILS % (AUTO) 1.2 % (0.0-2.0); EOSINOPHILS % (AUTO) 1.7 % (0.0-6.0); HEMATOCRIT 36 % (39-51); LYMPHOCYTES # (AUTO) 1.4 K/uL (0.8-4.8); LYMPHOCYTES % (AUTO) 18.7 % (20.0-44.0); MEAN CORPUSCULAR HGB CONC 34 g/dl (31.0-36.0); MEAN CORPUSCULAR VOLUME 100 fL (80-96); MONOCYTES # (AUTO) 0.7 K/uL (0.1-1.30); NEUTROPHILS # (AUTO) 4.9 K/uL (1.8-8.9); NEUTROPHILS % (AUTO) 68.4 % (43.0-81.0); PLATELET COUNT (AUTO) 206 K/uL (150-450); RED BLOOD CELL COUNT(AUTO) 3.55 MIL/uL (4.5-6.0); WHITE BLOOD COUNT (AUTO) 7.2 K/uL (4.3-11.0)
[2020-10-16 22:22] LABS: ALANINE AMINOTRANSFERASE 24 U/L (12-78); ALBUMIN 3.7 g/dL (3.4-5.0); ALCOHOL, BLOOD < 3 mg/dL (0-0); ALKALINE PHOSPHATASE 84 U/L (46-116); ASPARTATE AMINOTRANSFERASE 14 U/L (15-37); BILIRUBIN,DIRECT 0.1 mg/dL (0.0-0.2); BILIRUBIN,TOTAL 0.5 mg/dL (0.2-1.0); CARBON DIOXIDE 29 mmol/L (21-32); CHLORIDE 105 mmol/L (98-107); GLUCOSE 116 mg/dL (74-106); POTASSIUM 4.2 mmol/L (3.5-5.1); SODIUM SERUM 140 mmol/L (136-145); TOTAL PROTEIN, SERUM 6.9 g/dL (6.4-8.2); UREA NITROGEN, BLOOD 18 mg/dL (7-18)
[2020-10-16 22:24] LABS: ACETAMINOPHEN < 2 ug/ml (10-30)
--- NOTE | 2020-10-16 23:09 | NUR ---
PT ASLEEP, EASILY AROUSABLE. NO ACUTE DISTRESS NOTED, RESP EVEN AND UNLABORED. NO PAIN OR DISCOMFORT AT THIS TIME. PT STILL UNABLE TO PROVIDE URINE SAMPLE AT THIS TIME. ER MADE AWARE.
--- NOTE | 2020-10-17 00:44 | NUR ---
TRIED TO EXPOSE THE WOUND ON HAND, WHILE REMOVING THE GAUZE THE PT GOT AGGRESSIVE AND ALMOST STRUCK ME. PT NOT COOPERATING WITH STAFF.
--- NOTE | 2020-10-17 01:00 | NUR ---
URINE SAMPLE COLLECTED AND SENT TO LAB.
[2020-10-17 02:53] LABS: BILIRUBIN,URINE NEGATIVE (NEGATIVE); COLOR,URINE YELLOW (YELLOW); LEUKOCYTE ESTERASE ,URINE NEGATIVE (NEGATIVE); NITRITE, URINE NEGATIVE (NEGATIVE); PROTEIN,URINE NEGATIVE (NEGATIVE); UGLUCOSE NEGATIVE (NEGATIVE); UROBILINOGEN,URINE 0.2 EU/dL (0.2)
[2020-10-17] MEDS ORDERED: CEPHALEXIN MONOHYDRATE 500 MG CAPSULE PO ONE (03:00)
--- NOTE | 2020-10-17 04:17 | NUR ---
CLINICAL AND FACESHEET FAXED TO [facility] INTAKE FOR VOLUNTARY PSYCH ADMISSION.
[2020-10-17] MEDS ORDERED: CEPH500C2 PO (05:06)
[2020-10-17 06:00] VITALS: BP 124/63
--- NOTE | 2020-10-17 10:05 | NUR ---
PATIENT A/OX4, BREATHING EVEN AND UNLABORED, NO SOB NOTED. NEEDS ATTENDED.
--- NOTE | 2020-10-17 10:23 | NUR ---
Accepted to [facility] Unit [address] Dr Young For Report [phone] ext [phone]
--- NOTE | 2020-10-17 10:47 | NUR ---
Noted left arm has a dry wound with stiches. The patient did not let further evaluation of the wound but stated that there are 7 stiches that were placed yesterday at a hospital in [place]. According to the patient he obtained the cut on his left arm after having a fall. The patient states that it was an accident. Denies pain. No s/s infection noted. ER Dr Vieira was made aware of the wound on the arm (see MD notes).
--- NOTE | 2020-10-17 10:48 | NUR ---
report givent o nurse Quintanilla from [facility].
--- NOTE | 2020-10-17 10:50 | NUR ---
[facility] CALLED ETA 45 MINS.
--- NOTE | 2020-10-17 11:33 | NUR ---
Report given to automatic gluing machine operator. patient transferred to [facility] in stable condition. Belongings given to patient and EMT.
== END 2020-10-17 11:35 ==
LOC: ER 19:54
DX: F20.9 Schizophrenia, unspecified (principal); F19.10 Other psychoactive substance abuse, uncomplicated; S61.422D Laceration with foreign body of left hand, subsequent encounter; W19.XXXD Unspecified fall, subsequent encounter; Z20.822 Contact with and (suspected) exposure to COVID-19; Z59.0 Homelessness; G40.909 Epilepsy, unspecified, not intractable, without status epilepticus; I10 Essential (primary) hypertension; Z79.899 Other long term (current) drug therapy; R45.851 Suicidal ideations
CPT/HCPCS: 36415; 70450; 73090; 73130; 80048; 80076; 80143; 80307; 80320; 81003; 85025; 87426; 99285; C9803; G0480

== ENCOUNTER 2020-10-28 21:42 | Emergency (ER) | payer OTHER ==
[~2020-10-28] VITALS: Ht 175.3 cm; Wt 72.6 kg
[~2020-10-28 21:42] MED LIST changes: +CEPH500C2 PO
[2020-10-29 00:04] VITALS: BP 127/93
[2020-10-29] MEDS ORDERED: HYDR-4209 PO (00:51)
[2020-10-29] MEDS ORDERED: HYDROCODONE/APAP 10/325MG TABLET ONE (00:56)
[2020-10-29] MEDS ORDERED: FLUCONAZOLE (100 MG) 100 MG TABLET ONE (00:57)
[2020-10-29] MEDS ORDERED: HYDROCODONE/APAP 10/325MG TABLET PO ONE (01:00)
[2020-10-29] MEDS ORDERED: FLUCONAZOLE (100 MG) 100 MG TABLET PO ONE (01:00)
== END 2020-10-29 01:01 | disposition home or self-care (01) ==
LOC: ER 21:44
DX: S61.412D Laceration without foreign body of left hand, subsequent encounter (principal); G89.29 Other chronic pain; M79.675 Pain in left toe(s); F20.9 Schizophrenia, unspecified; F17.210 Nicotine dependence, cigarettes, uncomplicated; Z59.0 Homelessness; Z79.899 Other long term (current) drug therapy; X58.XXXD Exposure to other specified factors, subsequent encounter

== ENCOUNTER 2020-11-09 22:59 | Emergency (ER) | payer OTHER ==
[~2020-11-09] VITALS: Ht 182.9 cm; Wt 75.7 kg
[~2020-11-09 22:59] MED LIST changes: +HYDR-4209 PO
--- NOTE | 2020-11-09 23:37 | NUR ---
PT AAOX4. AMBULATORY WITH STEADY GAIT. BIBS C/O +S/I WITH A PLAN TO "JUMP OFF A BRIDGE WITH ." PLACED IN GOWN, ON MONTIROR, AND PULSE OX. BELONINGS PLACED IN LOCKER. NO ACUTE DISTRESS NOTED. AWAITING ER MD FOR EVAL AND ORDERS.
--- NOTE | 2020-11-09 23:42 | NUR ---
URINE COLLECTED AND SENT TO LAB.
[2020-11-10 00:01] LABS: BILIRUBIN,URINE SMALL (NEGATIVE); COLOR,URINE YELLOW (YELLOW); LEUKOCYTE ESTERASE ,URINE Negative (NEGATIVE); NITRITE, URINE Negative (NEGATIVE); PH,URINE 5.5 (5.0-8.0); PROTEIN,URINE Negative (NEGATIVE); UGLUCOSE Negative (NEGATIVE); UROBILINOGEN,URINE 0.2 EU/dL (0.2)
[2020-11-10 00:06] LABS: BACTERIA,URINE Rare /HPF (None Seen); RBC,URINE NONE SEEN /HPF (0-2); SQUAMOUS EPITHELIAL CELL,UR Few /HPF (None Seen); WBC,URINE NONE SEEN /HPF (0-3)
[2020-11-10 00:09] LABS: BASOPHILS # (AUTO) 0.1 K/uL (0.0-0.2); BASOPHILS % (AUTO) 1.6 % (0.0-2.0); EOSINOPHILS % (AUTO) 4.2 % (0.0-6.0); HEMATOCRIT 39 % (39-51); HEMOGLOBIN 12.8 g/dL (13.5-17.5); LYMPHOCYTES # (AUTO) 1.9 K/uL (0.8-4.8); LYMPHOCYTES % (AUTO) 40.5 % (20.0-44.0); MEAN CORPUSCULAR HGB CONC 33 g/dl (31.0-36.0); MEAN CORPUSCULAR VOLUME 103 fL (80-96); MONOCYTES # (AUTO) 0.5 K/uL (0.1-1.30); MONOCYTES % (AUTO) 11.1 % (2.0-12.0); NEUTROPHILS % (AUTO) 42.6 % (43.0-81.0); PLATELET COUNT (AUTO) 197 K/uL (150-450); RED BLOOD CELL COUNT(AUTO) 3.78 MIL/uL (4.5-6.0); WHITE BLOOD COUNT (AUTO) 4.8 K/uL (4.3-11.0)
[2020-11-10 00:23] LABS: CARBON DIOXIDE 29 mmol/L (21-32); CHLORIDE 104 mmol/L (98-107); GLUCOSE 95 mg/dL (74-106); POTASSIUM 3.5 mmol/L (3.5-5.1); SODIUM SERUM 141 mmol/L (136-145); UREA NITROGEN, BLOOD 14 mg/dL (7-18)
[2020-11-10 00:30] LABS: ALANINE AMINOTRANSFERASE 29 U/L (12-78); ALBUMIN 3.8 g/dL (3.4-5.0); ALCOHOL, BLOOD < 3 mg/dL (0-0); ALKALINE PHOSPHATASE 95 U/L (46-116); ASPARTATE AMINOTRANSFERASE 17 U/L (15-37); BILIRUBIN,DIRECT 0.1 mg/dL (0.0-0.2); BILIRUBIN,TOTAL 0.2 mg/dL (0.2-1.0); TOTAL PROTEIN, SERUM 6.9 g/dL (6.4-8.2)
[2020-11-10 00:31] LABS: ACETAMINOPHEN < 2 ug/ml (10-30)
--- NOTE | 2020-11-10 01:04 | NUR ---
FACESHEET AND CLINICALS FAXE TO [facility].
--- NOTE | 2020-11-10 03:15 | NUR ---
pt sitting quietly in bed, attached to monitor, vss
--- NOTE | 2020-11-10 07:08 | NUR ---
ACCEPTED TO [facility] BY DR MERAZ. CALL REPORT [phone] EXT [phone]
--- NOTE | 2020-11-10 07:14 | NUR ---
CALLED [facility] ETA 45MIN
[2020-11-10 07:30] VITALS: BP 129/66
--- NOTE | 2020-11-10 08:00 | NUR ---
REPORT GIVEN TO EMS FOR PT TRANSFER TO [facility].
--- NOTE | 2020-11-10 08:03 | NUR ---
report given to Lori NARANJO for maame.
--- NOTE | 2020-11-10 08:06 | NUR ---
patient left in stable condition, denies any pain, picked up by private ambulance going to [facility].
== END 2020-11-10 08:06 ==
LOC: ER 23:06
DX: R45.851 Suicidal ideations (principal); F19.10 Other psychoactive substance abuse, uncomplicated; Z59.0 Homelessness; Z20.822 Contact with and (suspected) exposure to COVID-19
CPT/HCPCS: 36415; 80048; 80076; 80143; 80307; 80320; 81001; 85025; 87426; 99285; C9803; G0480

== ENCOUNTER 2021-07-14 10:48 | Emergency (ER) | payer OTHER ==
[~2021-07-14] VITALS: Ht 177.8 cm; Wt 75.7 kg
--- NOTE | 2021-07-14 10:48 | NUR ---
PT BIB SELF C/O SI "I WANT TO RUN THRU TRAFFIC" REQUESTING VOLUNTARY PSYCH ADMISSION TO [facility]. PT IS AAOX4, NOT IN RESPIRATORY DISTRESS, V/S STABLE, KEPT RESTED AND COMFORT. SITTER AT BEDSIDE.
--- NOTE | 2021-07-14 11:00 | NUR ---
URINE SPECIMEN COLLECTED AND SENT TO LAB.
--- NOTE | 2021-07-14 11:06 | NUR ---
CALLED SECURITY AT BEDSIDE FOR WANDING.
--- NOTE | 2021-07-14 11:23 | NUR ---
COVID SWAB COLLECTED AND SENT
[2021-07-14 11:42] LABS: BASOPHILS # (AUTO) 0.1 K/uL (0.0-0.2); EOSINOPHILS % (AUTO) 6.4 % (0.0-6.0); HEMATOCRIT 44 % (39-51); HEMOGLOBIN 14.6 g/dL (13.5-17.5); LYMPHOCYTES # (AUTO) 1.2 K/uL (0.8-4.8); MEAN CORPUSCULAR HGB CONC 33 g/dl (31.0-36.0); MEAN CORPUSCULAR VOLUME 101 fL (80-96); MONOCYTES # (AUTO) 0.4 K/uL (0.1-1.30); MONOCYTES % (AUTO) 13.5 % (2.0-12.0); NEUTROPHILS # (AUTO) 1.2 K/uL (1.8-8.9); NEUTROPHILS % (AUTO) 39.1 % (43.0-81.0); PLATELET COUNT (AUTO) 215 K/uL (150-450); RED BLOOD CELL COUNT(AUTO) 4.39 MIL/uL (4.5-6.0); WHITE BLOOD COUNT (AUTO) 3.1 K/uL (4.3-11.0)
[2021-07-14 11:58] LABS: BILIRUBIN,URINE SMALL (NEGATIVE); COLOR,URINE DARK YELLOW (YELLOW); LEUKOCYTE ESTERASE ,URINE NEGATIVE (NEGATIVE); NITRITE, URINE NEGATIVE (NEGATIVE); PH,URINE 5.5 (5.0-8.0); PROTEIN,URINE NEGATIVE (NEGATIVE); UGLUCOSE NEGATIVE (NEGATIVE)
[2021-07-14 11:58] LABS: CALCIUM, SERUM 9.4 mg/dL (8.5-10.1); CARBON DIOXIDE 31 mmol/L (21-32); CHLORIDE 104 mmol/L (98-107); CREATININE 1.3 mg/dL (0.6-1.3); GLUCOSE 69 mg/dL (74-106); POTASSIUM 3.8 mmol/L (3.5-5.1); SODIUM SERUM 140 mmol/L (136-145); UREA NITROGEN, BLOOD 16 mg/dL (7-18)
[2021-07-14 12:03] LABS: ALANINE AMINOTRANSFERASE 18 U/L (12-78); ALBUMIN 4.4 g/dL (3.4-5.0); ALKALINE PHOSPHATASE 118 U/L (46-116); ASPARTATE AMINOTRANSFERASE 8 U/L (15-37); BILIRUBIN,DIRECT 0.1 mg/dL (0.0-0.2); BILIRUBIN,TOTAL 0.4 mg/dL (0.2-1.0); TOTAL PROTEIN, SERUM 8.1 g/dL (6.4-8.2)
[2021-07-14 12:18] LABS: ACETAMINOPHEN 0 ug/ml (10-30); ALCOHOL, BLOOD < 3 mg/dL (0-0)
[2021-07-14 13:15] LABS: BACTERIA,URINE None seen /HPF (None Seen); RBC,URINE 0-2 /HPF (0-2); WBC,URINE 0-2 /HPF (0-3)
[2021-07-14 14:12] LABS: SQUAMOUS EPITHELIAL CELL,UR None Seen /HPF (None Seen)
--- NOTE | 2021-07-14 16:28 | NUR ---
CLINICALS FAXED TO [facility] INTAKE.
--- NOTE | 2021-07-14 16:49 | NUR ---
ACCEPTED TO [facility] UNDER THE CARE OF DR. JC (PSYCH) AND DR. ARORA (MEDICAL). NUMBER TO GIVE REPORT [phone]. PRIMARY NURSE AWARE.
--- NOTE | 2021-07-14 16:56 | NUR ---
REPORT GIVEN TO MJ FOR ABDIRIZAK
--- NOTE | 2021-07-14 16:56 | NUR ---
[facility] CALLED FOR TRANSPORT ASKED FOR ETA 1899
[2021-07-14 18:28] VITALS: BP 130/77
--- NOTE | 2021-07-14 18:41 | NUR ---
REPORT GIVEN TO EMT FOR PT TRANSFER TO [facility].
--- NOTE | 2021-07-14 18:50 | NUR ---
Ashwin pierre in [facility] - 07/14/21 at 1856 by GABE REPORT GIVEN TO EMT FOR [facility]
[2021-07-18] MEDS ORDERED: LORA-259 PO (11:55)
[2021-07-18] MEDS ORDERED: TEMA15CA PO (11:55)
[2021-07-18] MEDS ORDERED: TIOT18CA3 IH (11:55)
[2021-07-18] MEDS ORDERED: LISI2.5T2 PO (11:55)
[2021-07-18] MEDS ORDERED: VENL75TA4 PO (11:55)
[2021-07-18] MEDS ORDERED: PHEN300C6 PO (11:55)
[2021-07-18] MEDS ORDERED: RISP2TAB85 PO (11:55)
[2021-07-18] MEDS ORDERED: [UNRECOGNIZED DRUG - CODE] GT (11:55)
== END 2021-07-14 18:57 ==
LOC: ER 10:48
DX: R45.851 Suicidal ideations (principal); F19.10 Other psychoactive substance abuse, uncomplicated; F20.0 Paranoid schizophrenia; F17.200 Nicotine dependence, unspecified, uncomplicated; F32.A Depression, unspecified
CPT/HCPCS: 36415; 80048; 80076; 80143; 80307; 80320; 81001; 85025; 87426; 99285; C9803; G0480